=== PATIENT | male | born 2000 | race African-American/Black ===

== ENCOUNTER 2023-07-06 11:44 | Emergency (ER) | payer SELFPAY ==
[2023-07-06] MEDS ORDERED: Sodium Chloride 0.9% 10 ML Syringe FLUSH PRN (12:10)
[2023-07-06] MEDS ORDERED: diphenhydrAMINE 50 MG/ML SDV IVPUSH ONE (12:11)
[2023-07-06] MEDS ORDERED: Ketorolac 30 MG/ML SDV IVPUSH ONE (12:11)
[2023-07-06] MEDS ORDERED: Metoclopramide 10 MG/2 ML SDV IVPUSH ONE (12:11)
[2023-07-06] MEDS ORDERED: Lactated Ringers 1,000 ML IV ONE (12:11)
[2023-07-06 12:18] LABS: APPEARANCE,URINE CLEAR (Clear); BILIRUBIN,URINE NEGATIVE (Negative); COLOR,URINE YELLOW (Yellow); GLUCOSE,URINE NEGATIVE (Negative); KETONES,URINE NEGATIVE (Negative); LEUKOCYTE ESTERASE,URINE NEGATIVE (Negative); NITRITE,URINE NEGATIVE (Negative); OCCULT BLOOD,URINE NEGATIVE (Negative); PROTEIN,URINE NEGATIVE (Negative)
== END 2023-07-06 12:36 | disposition left against medical advice (07) ==
LOC: JD.ED 11:44
DX: R11.2 Nausea with vomiting, unspecified (principal)
CPT/HCPCS: 81003; 99283; 99284